=== PATIENT | female | born 1985 | race African-American/Black ===

== ENCOUNTER 2021-10-22 23:31 | Outpatient (CLI) | payer OTHER ==
[2021-10-23 01:06] LABS: Bilirubin,Urine NEG (Negative); Blood,Urine NEG (Negative); Color,Urine Straw (Yellow); Protein,Urine <15 mg/dL mg/dL (Negative); RBC,Urine < 1.0 /HPF (0.0-6.0); Urobilinogen,Urine < 2.0 mg/dL (<2.0)
[2021-10-23 01:18] LABS: WBC,Urine < 1.0 /HPF (0.0-6.0)
== END 2021-10-23 07:30 | disposition home or self-care (01) ==
LOC: TRG 23:31 → APU 10-23 00:18 → TRG 10-23 07:30
PROVIDERS: ATTEND Obstetrics & Gynecology
DX: Z34.93 Encounter for supervision of normal pregnancy, unspecified, third trimester (principal); Z3A.39 39 weeks gestation of pregnancy
CPT/HCPCS: 81001